=== PATIENT | male | born 1975 | race Caucasian/White ===

== ENCOUNTER 2024-06-15 13:11 | Outpatient (AMB) | payer BC, SELFPAY ==
--- NOTE | 2024-06-15 13:26 | HO.SPINEOV ---
Vital Signs 06/15/24 13:27 Height 5 ft 6 in Weight 170 lb BMI 27.4 Intake Visit Reasons: lumbar radiculopathy Intake Note: Mr. Butler is here today c/o low back pain that radiates down to the right leg. Business Functional Analyst Required: No Allergies No Known Allergies Allergy (Verified 06/15/24 13:27) Physical Exam Vital Signs: BMI result Body Mass Index 27.4 Assessment & Plan Assessment & Plan (1) Lumbar disc herniation: Code(s): M51.26 - Other intervertebral disc displacement, lumbar region Category: Medical Plan Dear Dr Juares, Thank you for referring Mr Butler to our office today. He is a very nice 49-year-old gentleman with a previous history of a right L4-[address] Rahman 15 years ago with excellent results. Sometime back in January 2024 he was moving some heavy objects and leaning backwards and when he did he felt a pop in his back and felt pain shoot down his leg very similar to when he had a previous disc herniation. He tried to wait it out for awhile. He did see a surgeon at [facility]. He underwent physical therapy for 8 weeks without any relief. He was trialed on Motrin, Tylenol, Lyrica, cyclobenzaprine etc. without any major improvements. Unfortunately the pain persisted, an MRI was done and that showed that he has recurrent herniated disc on the right at L4-5 with compression of the right L5 nerve root. Unfortunately the surgeon at [facility] was not necessarily committed to the idea of surgery but the patient's pain has been so bad that he is seeking out a 2nd opinion. He has a lot of trouble sleeping, walking, standing for any length of time. More recently he underwent an L4-[address] Stearns and that did help slightly. He has now been out of work for about 4 months dealing with this issue and he is very frustrated with his quality of life. PMH: History of colon cancer many years ago with colon resection. Colon resection was done with a laparotomy. History of back surgery in 2009 as outlined above. Otherwise history of hypertension that is well controlled on lisinopril. Social hx: He does not smoke, drink or use any recreational drugs Medications: Cyclobenzaprine, lisinopril, lorazepam, Lyrica Allergies: None Physical exam: He has weakness of his right tibialis which I would rate as 4-5. Reflexes the patella and Achilles are normal. He has a well-healed midline incision in his lower lumbar spine. Imaging review: Lumbar MRI done at [facility] in February 2024 shows postsurgical changes with recurrent small disc herniation on the right at L4-5. Best seen on the sagittal T2 view you can see the disc herniation with the traversing L5 nerve root displaced posteriorly. Impression: 49-year-old male with a previous history of a right L4-5 microdiskectomy, done by Dr. Rahman 15 years ago, presents now with recurrent disc herniation on the right at L4-5. He has been through trials of conservative treatment as outlined above including physical therapy, cortisone injection as well as multiple medication trials but the pain just will not seem to go away. He was seen at [facility] and the surgeon there was not strongly in favor of surgery as the disc herniation was not that big. I reviewed his imaging with Dr. Blevins. We do see evidence on the imaging that there is posterior displacement of the nerve secondary to disc herniation, best seen on the sagittal T2 image. From our standpoint, the size of the disc herniation is not always the main factor and how much pain the patient may have. In fact, with the previous scar tissue in that area, there is probably less mobility of the nerve and therefore smaller disc herniation may give him more problems. Since he has been through all the conservative treatment, the pain has not improved and he has weakness of his right tibialis, Dr. Blevins is offering him a right L4-5 redo microdiskectomy. We have tentatively scheduled this for 07/27/2024. He understands that the success rate for the surgery is not going to be as high as it was the 1st time around where we would normally quote as high as 90% but we do think there significant room for improvement. Pt was given risk and benefits of surgery including but not limited to infection, hematoma , nerve injury,durotomy, weakness,bowel/bladder injury, persistent pain, recurrent disc herniation as well as the option to continue with conservative treatment and patient wishes to proceed with surgery. Pt is aware they should stop their motrin, aspirin 7 days prior to surgery. All questions were answered to the best of our ability. If there is anything about this patients medical history that we have overlooked or concerns you have about us proceeding with surgery we would appreciate any input you can offer. Thank you for allowing us to care for your patient. The total time spent with this visit with this patient was 45 minutes reviewing history, physical exam, lumbar imaging review, and implementation of treatment plan or further diagnostic testing Jefry Blevins MD,PhD [facility] Coding Level of Care Code New Pt Level 4 (22362) Diagnoses Lumbar disc herniation M51.26
[2024-06-15 13:27] VITALS: BMI 27.4
--- OUTSIDE RECORDS SUMMARY | 2024-06-15 15:32 | XMS_ITS | Clinical Summary ---
Author Organization [facility] it Address [address] [place] [address] Care Team Providers Care Estimator Binding Name Role Phone Unavailable Primary Care Provider Unavailabl e Social History Tobacco Use Types Packs/Day Years Used Date Smoking Tobacco: Never Assessed Sex and Gender Information Value Date Recorded Sex Assigned at Not on file Gender Identity Not on file Sexual Orientation Not on file Plan of Treatment Health Maintenance Due Date Last Done Comments Hepatitis A Vaccines (1 of 2 - Risk 2-dose series) 1993 Hepatitis B Vaccines (1 of 3 - 19+ 3-dose series) 1993 Depression Screening 04/25/2022 HIV Screening 04/25/2022 Hepatitis C Screening 04/25/2022 Social Influencers of Health Screening 04/25/2022 DTaP,Tdap,and Td Vaccines (3 - Td or Tdap) 08/15/2023 08/14/2013, 08/14/2013 COVID-19 Vaccine ( season) 2024 Influenza Vaccine (#1) 2024 3, 05/04/2019, 04/21/2018, Additional history exists Zoster Vaccines (1 of 2) 2024 Hypertension/CHF/CAD Annual BMP Blood Test 05/10/2024 03/25/2023 Cholesterol Screening (Lipid Panel) 01/09/2026 01/09/2021 Colorectal Cancer Screening: Colonoscopy 01/31/2030 02/01/2020 HIB Vaccines Aged Out No longer eligi ble based on patient's age to complete this topic HPV Vaccines Aged Out No longer eligi ble based on patient's age to complete this topic IPV Vaccines Aged Out No longer eligi ble based on patient's age to complete this topic MMR Vaccines Aged Out No longer eligi ble based on patient's age to complete this topic Meningococcal ACWY Vaccine Aged Out N o longer eligible based on patient's age to complete this topic Pneumococcal Vaccine: Pediatrics (0 to 5 Years) and At-Risk Patients (6 to 64 Years) Aged Out No longer eligible based on patient's age to complete this topic RSV Immunization Patients Under 20 months Aged Out No longer eligible based on patient's age to complete this topic Varicella Vaccines Aged Out No longer eligible based on patient's age to complete this topic
--- OUTSIDE RECORDS SUMMARY | 2024-06-15 15:32 | XMS_ITS | Encounter Summary ---
Author Organization [facility] Address [address] [facility] 7 [place] [address] Care Team Providers Care Water Plumber Name Role Phone Rosio Juares MD Primary Care Provider [phone] Reason for Referral * Consultation (Routine) - Closed Specialty Diagnoses / Procedures Referred By Godwin arora Referred To Contact Diagnoses Lumbar radiculopathy, chronic Asha Vallejo CNP [address] [place] [address] Phone: tel: fax: Ric [address] [place] [address] Phone: tel: fax: Referral ID Status Reason Start Date Expiration Date V isits Requested Visits Authorized [id number] Closed Specialty Services Required 03/15/2024 03/15/2025 1 1 Reason for Visit * Reason Onset Date Comments MRI results 03/10/2024 Care Coordination 03/10/2024 Encounter Details Date Type Department Care Team (Late st Contact Info) Description 03/10/2024 Telephone [facility] [address] [place] [address] Rosio Juares MD [address] [place] [address] MRI results; Care Coordination Social History Tobacco Use Types Packs/Day Years Used Date Smoking Tobacco: Former Cigarettes Smokeless Tobacco: Never Alcohol Use Standard Drinks/Week Comments Yes 0 (1 standard drink = 0.6 oz pur e alcohol) Rarley Sex and Gender Information Value Date Recorded Sex Assigned at Male 04/28/2022 1:14 PM EST Legal Sex Male 8:36 PM EDT Gender Identity Male 04/28/2022 1:14 PM EST Sexual Orientation Straight 04/28/2022 1: 14 PM EST documented as of this encounter Miscellaneous Notes * Telephone Encounter - Asha Vallejo CNP - 03/15/2024 10:31 AM EDT Referral entered; back to referrals for processing * Telephone Encounter - Roselyn Landis - 03/15/2024 9:12 AM EDT Sending to you as you are covering for Rosio, I don't want this this get lost an the patient have to keep waiting for his referral and this TE was not sent to Referrals. Patient called Referrals asking about a referral to Dr. Lynch. We don't have a referral for neurosurgery. Patient called Dr. Lynch's office and he does not see patients for Worker's Comp. They suggested either Dr. Chapa at [facility] or Dr Buddy Larios at [facility]. Patient prefers Dr. Larios. Please enter referral to neurosurgery is appropriate for his dx. * Telephone Encounter - Lalita Oliveros LPN - 03/14/2024 11:11 AM EDT Call placed to patient. Patient is agreeable to orthopedic but wants to do research where to go first. Patient will CB and speak with referrals of his choice. Patient is also requesting referral to Dr. Lynch, patient believes he may need to be seen by him as he does not think ortho can do much for hiscondition. Encounter to referrals as update and to covering to advise of requested new referral. * Telephone Encounter - Dorothy Linda - 03/14/2024 8:49 AM EDT Patient called, returning a call to nursing. Please call * Telephone Encounter - Lalita Oliveros LPN - 03/13/2024 2:32 PM EDT Call placed to patient. LMOM to CB. * Telephone Encounter - Dorothy Linda - 03/13/2024 2:24 PM EDT Patient called, returning call to nursing. Please call * Telephone Encounter - Ale Lucero LPN - 03/13/2024 2:10 PM EDT Left message for pt to call back. * Telephone Encounter - Asha Vallejo CNP - 03/13/2024 1:17 PM EDT Degenerative changes of lumbar spine, most significant finding small right central focal protrusionat L4-L5 which causes impingement of right L5 nerve root in the lateral recess; most likely cause of sx; advise follow up with ortho and if agreeable can enter order but would need to know where pt would like to go, thanks * Telephone Encounter - Lalita Oliveros LPN - 03/13/2024 12:21 PM EDT Results received, encounter to covering to review/advise. * Telephone Encounter - Lalita Oliveros LPN - 03/13/2024 9:09 AM EDT Pending results. * Telephone Encounter - Lalita Oliveros LPN - 2024 8:35 AM EDT Pending results. * Telephone Encounter - Bere Doan - 03/10/2024 4:03 PM EDT Patient returned call to nursing. MRI was done at [facility] on 03/01 Patient was made aware we will be sending the request for the mri records and once received nursingwill reach back out Please obtain medical records * Telephone Encounter - Judith Antonio LPN - 03/10/2024 3:43 PM EDT Call placed to patient. LMOM to return call. No MRI results in chart, When and where was it done. * Telephone Encounter - Sol Pitts - 03/10/2024 3:27 PM EDT Patient asking to speak to someone about MRI results documented in this encounter Plan of Treatment Not on file documented as of this encounter Procedures Procedure Name Priority Date/Time Associated Diagnosis Comments AMB REFERRAL TO NEUROSURGERY Routine 04/03/2024 Lumbar radiculopathy, chronic documented in this encounter Results * Referral to Neurosurgery (04/03/2024) Asha Vallejo CNP OUTPATIENT REFERRAL ORDERABLE S Final Result documented in this encounter Visit Diagnoses Diagnosis Lumbar radiculopathy, chronic- Primary documented in this encounter Care Teams Water Plumber Relationship Specialty Start Date End Date Rosio Juares MD [address] [place] [id number] PCP - General Internal Medicine 04/23/22 documented as of this encounter
--- OUTSIDE RECORDS SUMMARY | 2024-06-15 15:32 | XMS_ITS | Encounter Summary ---
Author Organization [facility] [employer] Address [address] [place] [address] [place] [address] Care Team Providers Care Geological Technician Name Role Phone Rosio Juares MD Primary Care Provider [phone] Reason for Visit * Reason Onset Date Comments [employer] paperwork 05/23/2024 Fax received fro [facility] Encounter Details Date Type Department Care Team (Late st Contact Info) Description 05/23/[address] [facility] [address] [place] [address] Rosio Juares MD [address] [place] [address] [facility] paperwork (Fax received from [facility] PFMLA) Social History Tobacco Use Types Packs/Day Years Used Date Smoking Tobacco: Former Cigarettes Smokeless Tobacco: Never Alcohol Use Standard Drinks/Week Comments Yes 0 (1 standard drink = 0.6 oz pur e alcohol) Nusrat Sex and Gender Information Value Date Recorded Sex Assigned at Male 04/28/2022 1:14 PM EST Legal Sex Male 8:36 PM EDT Gender Identity Male 04/28/2022 1:14 PM EST Sexual Orientation Straight 04/28/2022 1: 14 PM EST documented as of this encounter Miscellaneous Notes * Telephone Encounter - VERNA Canales - 05/23/2024 2:35 PM EST Paperwork to be completed by Dr Juares. documented in this encounter Plan of Treatment Not on file documented as of this encounter Visit Diagnoses Not on filedocumented in this encounter Care Teams Geological Technician Relationship Specialty Start Date End Date Rosio Juares MD [address] [place] [address] PCP - General Internal Medicine 04/23/22 documented as of this encounter
--- OUTSIDE RECORDS SUMMARY | 2024-06-15 15:32 | XMS_ITS | Encounter Summary ---
Author Organization [employer] Address [address] [place] [address] [address], [place] [address] Care Team Providers Care College Hire Name Role Phone Rosio Juares MD Primary Care Provider [phone] Reason for Referral * Consultation (Routine) - Pending Review Specialty Diagnoses / Procedures Referred By Godwin arora Referred To Contact Neurosurgery Diagnoses Lumbar radiculopathy, acute Rosio Juares MD [address] [place] [address] Phone: tel: fax: Sumit Blevins[address] [place] [address] Phone: tel: fax: Referral ID Status Reason Start Date Expiration Date Visits Requested Visits Authorized [id number] Pending Review Specialty Services Required 06/01/2024 06/01/2025 1 1 Reason for Visit * Reason Onset Date Comments Additional [facility] PT paperwork 06/01/2024 Encounter Details Date Type Department Care Team (Late st Contact Info) Description 06/01/2024 Telephone [place] [facility] [address] [place] [address] Rosio Juares MD [address] [place] [address] Additional [facility] PT paperwork Social History Tobacco Use Types Packs/Day Years [...] * Telephone Encounter - VERNA Canales - 06/05/2024 3:01 PM EST SUCCESSFULLY FAXED COMPLETED PAPERWORK ENCOUNTER ADDRESSED * Telephone Encounter - VERNA Canales - 06/01/2024 9:05 AM EST Additional paperwork from [facility] PT Encounter to Dr Juares for review and signature documented in this encounter Plan of Treatment Not on file documented as of this encounter Procedures Procedure Name Priority Date/Time Associated Diagnosis Comments AMB REFERRAL TO NEUROSURGERY Routine 06/15/2024 Lumbar radiculopathy, acute documented in this encounter Results * Referral to Neurosurgery (06/15/2024) us Rosio Juares MD OUTPATIENT REFERRAL ORDERABLES F inal Result documented in this encounter Visit Diagnoses Diagnosis Lumbar radiculopathy, acute- Primary documented in this encounter Care Teams College Hire Relationship Specialty Start Date End Date Rosio Juares MD [address] [place] [address] PCP - General Internal Medicine 04/23/22 documented as of this encounter
--- OUTSIDE RECORDS SUMMARY | 2024-06-15 15:32 | XMS_ITS | Encounter Summary ---
Author Organization [employer] [facility] Address [address] [place] [address] [place] [address] Care Team Providers Care Trimmer Climber Name Role Phone Rosio Juares MD Primary Care Provider Reason for Visit * Reason Onset Date Comments AT Physical Therapy paperwork 05/23/2024 F ax received from [facility] Physical Therapy paperwork Encounter Details Date Type Department Care Team (Late st Contact Info) Description 05/23/[address] [facility] MEDICAL [address] [place] [address] Rosio Juares MD [address] [place] [address] [facility] Physical Therapy paperwork (Fax received from [facility] Physical Therapy paperwork) Social History Tobacco Use Types Packs/Day Years [...] Telephone Encounter - VERNA Canales - 05/23/2024 2:36 PM EST [facility] Physical Therapy paperwork to be reviewed and completed by Dr Juares for faxing. documented in this encounter Plan of Treatment Not on file documented as of this encounter Visit Diagnoses Not on filedocumented in this encounter Care Teams Trimmer Climber Relationship Specialty Start Date End Date Rosio Juares MD [address] [place] [id number] PCP - General Internal Medicine 04/23/22 documented as of this encounter
--- OUTSIDE RECORDS SUMMARY | 2024-06-15 15:32 | XMS_ITS | Clinical Summary ---
Author Organization [employer] [employer] Address [address] [place] [address] 7 [place] [address] Care Team Providers Care Kitchen And Counter Worker Name Role Phone Rosio Juares MD Primary Care Provider [phone] Allergies Active Allergy Reactions Criticality Noted Date Comments Duloxetine Hcl 06/24/2022 Other reaction(s): Unknown Medications * This document contains information received from the source organization and may not represent a complete record from that organization. lisinopril 20 MG tabletIndication s:Essential hypertension Take 1 tablet (20 mg) by mouth in the morning. 90 tablet 3 11/18/19 24 025 Active pregabalin (Lyrica) 50 MG capsuleIndicatio ns:Lumbar radiculopathy, acute Take 1 capsule (50 mg) by mouth 3 times daily. 90 capsule 2 03/27/20 24 025 Active LORazepam (Ativan) 0.5 MG tabletIndication s:Generalized anxiety disorder with panic attacks TAKE 1 TABLET (0.5 MG) BY MOUTH EVERY 8 (EIGHT) HOURS IF NEEDED FOR ANXIETY. 90 tablet 1 04/06/20 24 Active cyclobenzaprine (Flexeril) 10 MG tabletIndication s:Lumbar radiculopathy, acute TAKE 1 TABLET (10 MG) BY MOUTH NEEDED IN THE MORNING , AT NOON, AND AT BEDTIME FOR MUSCLE SPASMS 45 tablet 06/01/19 25 Active cyclobenzaprine (Flexeril) 10 MG tabletIndication s:Lumbar radiculopathy, acute Take 1 tablet (10 mg) by mouth if needed in the morning, at noon, and at bedtime for muscle spasms. 45 tablet 04/27/20 24 025 Discontinued Active Problems Problem Noted Date Diagnosed Date Environmental and seasonal allergies 06/24/2022 Allergic rhinitis 06/24/2022 Anxiety 06/24/2022 Bunion, right foot 06/24/2022 Chronic pain disorder 06/24/2022 Overview (04/05/2023): S/p [facility] sports/injections Weaned down from 120 mg oxycodone daily and TID lorazepam, plan to continue weaning benzo Essential hypertension 06/24/2022 Hand pain 06/24/2022 Insomnia 06/24/2022 Low back pain 06/24/2022 Neck pain 06/24/2022 Nephrolithiasis 06/24/2022 Sleep apnea in adult 06/24/2022 Encounters Date Type Department Care Team Description 06/01/[address] [address] Rosio Juares MD Additional AT PT paperwork 05/31/[address] [address] Rosio Juares MD Lumbar radiculopathy, acute 05/23/[address] [address] Rosio Juares MD AT Physical Therapy paperwork (Fax received from [facility] Physical Therapy paperwork) 05/23/[address] [address] Rosio Juares MD [facility] paperwork (Fax received from [facility] PFMLA) 05/03/[address] [address] Rosio Juares MD DISABILITY PPW FROM [facility] (FAX RECEIVED FROM PATIENTS WORK RE: DISABILITY PPW) 05/01/2024 11:20 AM EST Telemedicine [address] [address] Rosio Juares MD Work related injury (Primary Dx); Lumbar radiculopathy, acute 04/26/[address] [address] Rosio Juares MD Lumbar radiculopathy, acute 04/04/[address] [address] Rosio Juares MD Generalized anxiety disorder with panic attacks 03/27/2024 9:40 AM EST Telemedicine [address] [address] Rosio Juares MD Lumbar radiculopathy, acute (Primary Dx); Hepatic cyst 03/16/[address] [address] Rosio Juares MD Lumbar radiculopathy, acute 03/16/[address] [address] Rosio Juares MD Paperwork/Forms from Last 3 Months Immunizations Name Administration Dates Next Due INFLUENZA INJECTABLE QUADRIV ALANT CCIIV4 MDCK Multi-dose vial 05/04/2019 Influenza Injectable Quadriv alant Preservative Free IIV4 MDCK 07/02/2022 Influenza, IIV3, injectable 04/21/2018,1 ,03/12/2015,2013 Influenza, Split (incl. john fied surface antigen) 04/29/2010 Influenza, seasonal, injecta ble, preservative free 02/18/2016 TD (adult), 2 Lf tetanus tox oid, preservative free, adsorbed 08/14/2013 Tdap 08/14/2013 Social History Tobacco Use Types Packs/Day Years Used Date Smoking Tobacco: Former Cigarettes Smokeless Tobacco: Never Tobacco Cessation:Counseling Given: Not Answered Alcohol Use Standard Drinks/Week Comments Yes 0 (1 standard drink = 0.6 oz pur e alcohol) Nusrat Sex and Gender Information Value Date Recorded Sex Assigned at Male 04/28/2022 1:14 PM EST Legal Sex Male 8:36 PM EDT Gender Identity Male 04/28/2022 1:14 PM EST Sexual Orientation Straight 04/28/2022 1: 14 PM EST Last Filed Vital Signs Vital Sign Reading Time Taken Comments Blood Pressure 128/92 03/03/2024 3:39 PM EDT Pulse 90 03/03/2024 3:39 PM EDT Temperature 36.2 ??C (97.2 ??F) 03/03/2024 3:39 PM ED T Respiratory Rate 18 03/03/2024 3:39 PM EDT Oxygen Saturation 99% 11/20/2021 2:15 PM EDT Inhaled Oxygen Concentration - - Weight 75.8 kg (167 lb) 03/03/2024 3:39 PM EDT Height 167.6 cm (5' 6 ) 11/18/2023 3:35 PM EDT Body Mass Index 26.95 11/18/2023 3:35 PM EDT Plan of Treatment Health Maintenance Due Date Last Done Comments Depression Screening 1974 HIV Screening 1974 SDOH Screening 1974 Alcohol/Substance Use Screening 1986 Family Planning (PISQ) 1989 Hepatitis C Screening 1992 Hepatitis A Vaccines (1 of 2 - Risk 2-dose series) 1993 Hepatitis B Vaccines (1 of 3 - 19+ 3-dose series) 1993 DTaP/Tdap/Td Vaccines (3 - Td or Tdap) 08/15/2023 08/14/2013, 08/14/2013 COVID-19 Vaccine ( season) 2024 06/24/2021, 08/02/2020, 07/14/2020 Influenza Vaccine (#1) 2024 , 05/04/2019, 04/21/2018, Additional history exists Zoster Vaccines (1 of 2) 2024 Tobacco Screening 03/03/2025 03/03/2024 Lipid Panel 01/09/2026 01/09/2021 RSV Patients and Patients Aged 60 years or older (1 - 1-dose 75+ series) 2049 Colonoscopy Discontinued 02/01/2020, 11/18/2015 Colorectal Cancer Screening Discontinued CT Colonography Discontinued FIT DNA/Cologuard Discontinued FIT Discontinued FOBT Discontinued HIB Vaccines Aged Out No longer eligi ble based on patient's age to complete this topic HPV Vaccines Aged Out No longer eligi ble based on patient's age to complete this topic IPV Vaccines Aged Out No longer eligi ble based on patient's age to complete this topic Meningococcal Vaccine Aged Out No rossana toney eligible based on patient's age to complete this topic Pneumococcal Vaccine: Pediatrics (0 to 5 Years) and At-Risk Patients (6 to 64 Years) Aged Out No longer eligible based on patient's age to complete this topic RSV under 20 months Aged Out No longe r eligible based on patient's age to complete this topic Rotavirus Vaccines Aged Out No longer eligible based on patient's age to complete this topic Sigmoidoscopy Discontinued Procedures Procedure Name Priority Date/Time Associated Diagnosis Comments AMB REFERRAL TO NEUROSURGERY Routine 06/15/2024 Lumbar radiculopathy, acute AMB REFERRAL TO PHYSICAL THERAPY Routine 05/15/2024 Lumbar radiculopathy, chronic AMB REFERRAL TO NEUROSURGERY Routine 04/03/2024 Lumbar radiculopathy, chronic LIPID PANEL, STANDARD Routine 01/09/2021 3:35 PM EDT COLONOSCOPY Routine 02/01/2020 12:00 AM EDT from Last 3 Months or Most Recently Relevant to Health Maintenance Results * Referral to Neurosurgery (06/15/2024) Only the most recent of2 resultswithin the time period is included. us Rosio Juares MD OUTPATIENT REFERRAL ORDERABLES F inal Result * Referral to Physical Therapy (05/15/2024) us Rosio Juares MD OUTPATIENT REFERRAL ORDERABLES E dited Result - Final * (ABNORMAL) -Lipid Panel (01/09/2021 3:35 PM EDT) LDL CHOLESTEROL, CALCULATED 90 (0-130) MG/DL [facility] CHOLESTEROL, TOTAL 140 (<200) MG/DL [facility] HDL CHOL 39(L) (>39) MG/DL [facility] NON HDL CHOLESTEROL (CALC) 101 (<160) MG/DL [facility] TRIGLYCERIDE 55 (<150) MG/DL [facility] 01/09/2021 3:35 PM EDT us Rosio Juares MD LAB BLOOD ORDERABLES Final Resul t [facility] [address] * COLONOSCOPY: [facility] (02/01/2020 12:00 AM EDT) Anatomical Region Laterality Modality Endoscopy 02/01/2020 Narrative 02/01/2020 12:00 AM EDT Refer to Fovea for result details Legacy Procedure: COLONOSCOPY: [facility] Procedure Note Provider, Miguelina, - 09/17/2022 Refer to Fovea for result details Legacy Procedure: COLONOSCOPY: [facility] us Historical Provider ENDOSCOPY PROCEDURE ORDER ALBIN Final Result from Last 3 Months or Most Recently Relevant to Health Maintenance Insurance [employer] PPO [employer] Care Teams Kitchen And Counter Worker Relationship Specialty Start Date End Date Rosio Juares MD [address] [place] [id number] PCP - General Internal Medicine 04/23/22
--- OUTSIDE RECORDS SUMMARY | 2024-06-15 15:32 | XMS_ITS | Encounter Summary ---
Author Organization [employer] Address [address] [place] [address] [place] [address] Care Team Providers Care Deputy Director Of Public Works Name Role Phone Rosio Juares MD Primary Care Provider [phone] Reason for Visit * Reason Comments Med Refill Encounter Details Date Type Department Care Team (Late st Contact Info) Description 05/31/2024 Refill [facility] MEDICAL [address] [place] [address] Rosio Juares MD [address] [place] [address] Lumbar radiculopathy, acute Social History Tobacco Use Types Packs/Day Years [...] PM EST documented as of this encounter Plan of Treatment Not on file documented as of this encounter Visit Diagnoses Diagnosis Lumbar radiculopathy, acute documented in this encounter Care Teams Deputy Director Of Public Works Relationship Specialty Start Date End Date Rosio Juares MD [address] [place] [address] PCP - General Internal Medicine 04/23/22 documented as of this encounter
== END 2024-06-15 14:16 | disposition home or self-care (01) ==
PROVIDERS: PCP Internal Medicine; Referring Provider Internal Medicine; Visit Provider Physician Assistant
DX: M51.26 Other intervertebral disc displacement, lumbar region (principal)
CPT/HCPCS: 99204

== ENCOUNTER → 2024-06-15 13:11 | Outpatient (BNVA) | payer BC, SELFPAY | PROVIDERS: PCP Internal Medicine; Referring Provider Internal Medicine; Visit Provider Physician Assistant ==

== ENCOUNTER 2024-07-06 06:52 | Day surgery (SDC) | payer BC, SELFPAY ==
[2024-06-28 12:03] VITALS: BP 138/81; PULSE 77; RESP 18; O2SAT 99; BMI 29.1
[2024-06-28 13:06] LABS: Hematocrit 44.3 % (42.0-52.0); Hemoglobin 14.6 g/dl (14.0-18.0); Mean Corpuscular Hemoglobin 29.6 pg (27.0-33.0); Mean Corpuscular Volume 89.7 fL (80.0-98.0); Mean Platelet Volume 9.4 fL (9.4-12.4); Platelet Count 214 X10*3/uL (160-400); Red Blood Count 4.94 X10*6/uL (4.60-5.80); Red Cell Distribution Width 12.5 % (11.0-16.0); White Blood Count 5.3 X10*3/uL (4.8-10.8)
[2024-06-28 13:57] LABS: Anion Gap 11 (12-20); Blood Urea Nitrogen 15 mg/dL (9-16); Calcium 9.2 mg/dL (8.4-10.2); Carbon Dioxide 25 mmol/L (22-29); Chloride 107 mmol/L (96-108); Creatinine Clr Calc Pharmacy 90.3; Estimated Glomerular Filt Rate > 60; Glucose Random 103 mg/dL (60-115); Potassium 4.9 mmol/L (3.3-5.1); Sodium 138 mmol/L (135-145)
[2024-07-06] VITALS (10 sets, daily range): BP systolic 119–143; BP diastolic 75–87; PULSE 55–68; RESP 14–22; TEMP 36.4–36.9; O2SAT 99–100; BMI 28.9
--- NOTE | ~2024-07-06 | FL_ITS ---
EXAMINATION: FL GUIDANCE ONLY HISTORY: Redo L4-L5 microdiscectomy Right COMPARISON: None available. TECHNIQUE: Fluoroscopy time: Less than 1 minute. Cumulative Dose: 2.06 mGy. DAP: 0.540 mGym2 Images: 1. FINDINGS: A single fluoroscopic spot film of the lumbar spine in the lateral projection demonstrates a probe directed toward the L4-5 intervertebral disc space from a posterior approach. FL/FL guidance in OR IMPRESSION: Fluoroscopy during procedure. Please see procedure report for additional information. Electronically signed by: Wil Yen MD 07/06/2024 09:41 AM EST
--- OUTSIDE RECORDS SUMMARY | 2024-07-06 06:54 | XMS_ITS | Clinical Summary ---
Author Organization [employer] Address [address] [place] [address] 7 [place] [address] Care Team Providers Care Bronc Buster Name Role Phone Rosio Juares MD Primary Care Provider [phone] Allergies Active Allergy Reactions Criticality Noted Date [...] 90 capsule 2 03/27/20 24 025 Active cyclobenzaprine (Flexeril) 10 MG tabletIndication s:Lumbar radiculopathy, acute TAKE 1 TABLET (10 MG) BY MOUTH NEEDED IN THE MORNING , AT NOON, AND AT BEDTIME FOR MUSCLE SPASMS 45 tablet 06/26/19 25 Active LORazepam (Ativan) 0.5 MG tabletIndication s:Generalized anxiety disorder with panic attacks Take 1 tablet (0.5 mg) by mouth every 8 (eight) hours if needed for anxiety. 90 tablet 1 06/26/19 25 Active LORazepam (Ativan) 0.5 MG tabletIndication s:Generalized anxiety disorder with panic attacks TAKE 1 TABLET (0.5 MG) BY MOUTH EVERY 8 (EIGHT) HOURS IF NEEDED FOR ANXIETY. 90 tablet 1 04/06/20 24 025 Discontinued(Re order (will not trigger notification to Pharmacy)) cyclobenzaprine (Flexeril) 10 MG tabletIndication s:Lumbar radiculopathy, acute TAKE 1 TABLET (10 MG) BY MOUTH NEEDED IN THE MORNING , AT NOON, AND AT BEDTIME FOR MUSCLE SPASMS 45 tablet 06/01/19 25 025 Discontinued Active Problems Problem Noted Date [...] Encounters Date Type Department Care Team Description 06/28/[address] [address] Rosio Juares MD PML paperwork 06/25/[address] [address] Rosio Juares MD Generalized anxiety disorder with panic attacks 06/24/[address] [address] Rosio Juares MD Lumbar radiculopathy, acute 06/01/[address] [address] Rosio Juares MD Additional [facility] PT paperwork 05/31/[address] [address] Rosio Juares MD Lumbar radiculopathy, acute 05/23/[address] [address] Rosio Juares MD AT Physical Therapy paperwork (Fax received from [facility] Physical [facility] paperwork) 05/23/[address] [address] Rosio Juares MD [employer] paperwork (Fax received from [employer] PFMLA) 05/03/[address] [address] Rosio Juares MD DISABILITY PPW FROM [employer] (FAX RECEIVED FROM PATIENTS WORK RE: DISABILITY PPW) 05/01/2024 11:20 AM EST Telemedicine [address] [address] Rosio Juares MD Work related injury (Primary Dx); Lumbar radiculopathy, acute 04/26/[address] [address] Rosio Juares MD Lumbar radiculopathy, acute from Last 3 Months Immunizations Name Administration [...] Tdap) 08/15/2023 08/14/2013, 08/14/2013 COVID-19 Vaccine ( - 2023- season) 2024 06/24/2021, 08/02/2020, 07/14/2020 Influenza Vaccine (#1) 2024 , 05/04/2019, 04/21/2018, Additional history exists Pneumococcal Vaccine: 50+ Years (1 of 1 - PCV) 2024 Zoster Vaccines (1 of 2) 2024 Tobacco [...] acute AMB REFERRAL TO PHYSICAL THERAPY Routine 06/15/2024 Lumbar radiculopathy, chronic LIPID PANEL, STANDARD Routine 01/09/2021 3:35 PM EDT COLONOSCOPY Routine 02/01/2020 12:00 AM EDT from Last 3 Months or Most Recently Relevant to Health Maintenance Results * Referral to Physical Therapy (06/15/2024) us Rosio Juares MD OUTPATIENT REFERRAL ORDERABLES E dited Result - Final * Referral to Neurosurgery (06/15/2024) us Rosio Juares MD OUTPATIENT REFERRAL ORDERABLES F inal Result * (ABNORMAL) -Lipid Panel (01/09/2021 3:35 PM [...] MD LAB BLOOD ORDERABLES Final Resul t [facility] [address] [place] [address], * COLONOSCOPY: [facility] (02/01/2020 12:00 AM EDT) Anatomical Region Laterality Modality Endoscopy 02/01/2020 Narrative 02/01/2020 12:00 AM EDT Refer to Fovea for result details Legacy Procedure: [facility]OS[facility]: [facility] Procedure Note Provider, MD Miguelina - 09/17/2022 Refer to Fovea for result details Legacy Procedure: [facility]ONOSCOPY: [facility] Historical Provider ENDOSCOPY PROCEDURE ORDER ALBIN Final Result from Last 3 Months or Most Recently Relevant to Health Maintenance Insurance [place] [address] PPO [facility] [employer] Care Teams Bronc Buster Relationship Specialty Start Date End Date Rosio Juares MD [address] [place] [address] PCP - General Internal Medicine 04/23/22
--- OUTSIDE RECORDS SUMMARY | 2024-07-06 06:54 | XMS_ITS | Encounter Summary ---
Author Organization [employer] Address [address] [place] [address] 7 [place] [address] Care Team Providers Care Human Services Supervisor Name Role Phone Rosio Juares MD Primary Care Provider [phone] Reason for Visit * Reason Onset Date Comments PML paperwork 06/28/2024 Encounter Details Date Type Department Care Team (Late st Contact Info) Description 06/28/2024 Telephone [facility] MEDICAL [address] [place] [address] Rosio Juares MD [address] [place] [address] PML paperwork Social History Tobacco Use Types Packs/Day [...] * Telephone Encounter - VERNA Canales - 06/30/2024 10:54 AM EST Faxed - encounter addressed * Telephone Encounter - Randi Faustin - 06/28/2024 2:39 PM EST Paid medical leave received via fax from [facility] to be filled out. Placed in the providers bin documented in this encounter Plan of Treatment Not on file documented as of this encounter Visit Diagnoses Not on filedocumented in this encounter Care Teams Human Services Supervisor Relationship Specialty Start Date End Date Rosio Juares MD [address] [place] [id number] PCP - General Internal Medicine 04/23/22 documented as of this encounter
--- OUTSIDE RECORDS SUMMARY | 2024-07-06 06:55 | XMS_ITS | Encounter Summary ---
Author Organization [employer] Address [address] [place] [address] [place] [address] Care Team Providers Care Ship'S Officer Name Role Phone Rosio Juares MD Primary Care Provider [phone] Reason for Visit * Reason Comments Med Refill Encounter Details Date Type Department Care Team (Late st Contact Info) Description 06/24/2024 Refill [facility] MEDICAL [address] [place] [address] Rosio Juares MD [address] [place] [address] Lumbar radiculopathy, acute Social History Tobacco Use [...] acute documented in this encounter Care Teams Ship'S Officer Relationship Specialty Start Date End Date Rosio Juares MD [address] [place] [address] PCP - General Internal Medicine 04/23/22 documented as of this encounter
--- OUTSIDE RECORDS SUMMARY | 2024-07-06 06:55 | XMS_ITS | Continuity of Care Document ---
Author Organization [facility] Address [address] [place] [address] [address], [address] [place] [address]- Care Team Providers Care Plunket Nurse Name Role Phone Rosio Juares MD Primary Care Physician Encounter [facility] Date(s): 05/23/24 - 06/22/[address] [place], [place] [address] Referring Physician: Ponce Stearns DO Encounter Type: Triage Allergies, Adverse Reactions, Alerts No Known Allergies Medications Aleve = 220 mg, By Mouth, 2 times a day, 0 Refills, Maintenance, 12/02/09 3:30:59 PM EDT Start Date: 12/02/09 Status: Ordered Repeat number: 1 Ambien 10 mg oral tablet 10 mg, 1, tablet, By Mouth, Daily at bedtime, 0 Refills Start Date: 07/29/07 Status: Ordered Repeat number: 1 Ativan 0.5 mg oral tablet 1, mg, By Mouth, Daily, PRN as needed for anxiety, 0 Refills, Maintenance Start Date: 07/29/07 Status: Ordered Repeat number: 1 lisinopril 10 mg oral tablet 10 mg, 1, tablet, By Mouth, Daily, # 30 tablet, Refills 0, Maintenance, 06/04/22 10:41:00 AM EST, Partial fill upon patient request if the prescription is for a schedule II opioid drug. Start Date: 06/04/22 Status: Ordered Quantity: 30.0 Unit: tablet Repeat number: 1 Percocet-10/325 oral tablet 10, mg, By Mouth, Every 4 hours, 0 Refills, Maintenance Start Date: 07/29/07 Status: Ordered Repeat number: 1 Social History Social History Type Response Smoking Status Never (less than 100 in lifetime) entered on: 04/03/24 Sex Sex Representation Male (finding) Patient Care team information Care Team Personnel Name: Rosio Juares MD Position: [facility] Physician - Pediatrics Member Role: PCP Address: [address] [place] [address] Telecom: Care Team Related Persons Name: JULIO CÉSAR ROLON Insurance Providers Guarantor name: CASH ROLON Health Plan Information #: 1 Payer: [employer] OUT OF STATE PLANS Member Number: NA Policy Number: NA Group Number: NA Health Plan Information #: 2 Payer: [employer] Member Number: NA Policy Number: NA Group Number: NA
--- OUTSIDE RECORDS SUMMARY | 2024-07-06 06:55 | XMS_ITS | Encounter Summary ---
Author Organization [employer] Address [address] [place] [address] [place] [address] Care Team Providers Care Wood Mechanist Name Role Phone Rosio Juares MD Primary Care Provider [phone] Reason for Visit * Reason Onset Date Comments Med Refill 06/25/2024 CS RX REFILL ON LORAZEPAM Encounter Details Date Type Department Care Team (Late st Contact Info) Description 06/25/2024 Refill [facility] MEDICAL [address] [place] [address] Rosio Juares MD [address] [place] [address] Generalized anxiety disorder with panic attacks Social History Tobacco Use Types Packs/Day Years [...] * Telephone Encounter - VERNA Canales - 06/26/2024 3:16 PM EST [facility] Last fill Date: 05/15/24 [facility] sold Date: Last OV: 05/01/25 Next OV: NONE SCHEDULED Last UTOX: 08/19/23 CSA Date: 08/19/23 DNF Date: REFILL IS DUE documented in this encounter Plan of Treatment Not on file documented as of this encounter Visit Diagnoses Diagnosis Generalized anxiety disorder with panic attacks documented in this encounter Care Teams Wood Mechanist Relationship Specialty Start Date End Date Rosio Juares MD [address] [place] [phone] PCP - General Internal Medicine 04/23/22 documented as of this encounter
--- OUTSIDE RECORDS SUMMARY | 2024-07-06 06:55 | XMS_ITS | Encounter Summary ---
Author Organization [employer] Address [address] [facility] 7 [place] [address] Care Team Providers Care Sde Name Role Phone Rosio Juares MD Primary Care Provider [phone] Reason for Referral * Consultation (Routine) - Closed Specialty Diagnoses / Procedures Referred By Godwin arora Referred To Contact Diagnoses Lumbar radiculopathy, chronic Asha Vallejo CNP [address] [place] [address] Phone: tel: fax: Ric [address] [place] [address] Phone: tel: fax: Referral ID Status Reason Start Date Expiration Date V isits Requested Visits Authorized [id number] Closed Specialty Services Required 03/15/2024 03/15/2025 1 1 Reason for Visit * Reason Onset Date Comments MRI results 03/10/2024 Care Coordination 03/10/2024 Encounter Details Date Type Department Care Team (Late st Contact Info) Description 03/10/2024 Telephone [facility] MEDICAL [address] [place] [address] Rosio Juares MD [address] [place] [address] MRI results; Care Coordination Social History Tobacco [...] Comp. They suggested either Dr. Chapa at [place] or Dr Buddy Larios at [facility]. Patient prefers Dr. Larios. Please enter referral [...] call to nursing. MRI was done at [facility] on 03/01 Patient was made aware [...] Primary documented in this encounter Care Teams Sde Relationship Specialty Start Date End Date Rosio Juares MD [address] [place] [address] PCP - General Internal Medicine 04/23/22 documented as of this encounter
--- OUTSIDE RECORDS SUMMARY | 2024-07-06 06:55 | XMS_ITS | Clinical Summary ---
Author Organization [facility] Address [address] [place] [address] Care Team Providers Care Fermenting Cellar Dropper Name Role Phone Unavailable Primary Care Provider Unavailabl e Social History Tobacco Use Types Packs/Day Years Used Date Smoking Tobacco: Never Assessed Sex and Gender Information Value Date Recorded Sex Assigned at Not on file Legal Sex Male 10:15 PM EST Gender Identity Not on file Sexual Orientation [...] or Tdap) 08/15/2023 08/14/2013, 08/14/2013 COVID-19 Vaccine (1 - season) 2024 Influenza Vaccine (#1) 2024 3, [...]
--- NOTE | 2024-07-06 07:05 | P.HPSUR_ITS ---
Pre-Procedural Eval Section A - 24 Hr Update-Section A only Date of Service: 07/06/24 The patient is an INPATIENT: No Changes since office visit: No Cold of Flu in the past 2 weeks, No New Medical Problems, No Changes in Medication and No Patient answered all questions The patient has been examined within 24 hours of the surgical procedure. The History & Physical has been completed within 30 days and I have reviewed it.: No Section B - Complete if H&P > 30 days Chief Complaint: Other intervertebral disc displacement, lumbar reg Allergies: Allergies Allergy/AdvReac Type Severity Reaction Status Date / Time No Known Allergies Allergy Verified 06/15/24 13:27 Review of Systems Sugical H&P ROS: Negative: Constitution, Cardiovascular, Respiratory, Neurological, Psychiatric, Hem-Onc, Allergic/Immunologic, Gastrointestinal, Genitourinary, Musculoskeletal, Integumentary, Endocrine and Eyes/Ears/Nose/Thr oat Exam Surgical H&P Exam: Normal: HEENT, Normal: Heart, Normal: Lungs, Normal: Extremities, Normal: Abdomen, Normal: Skin and Normal: Neurological (awake, alert,oriented x 3 ) Plan Diagnosis/Plan: Unchanged redo right L4-5 microdiskectomy Time Spent With Patient Time: Total time managing care of this patient today ___5_ minutes.
--- NOTE | 2024-07-06 07:06 | PM.DS ---
DS: Providers Provider Date of Service: 07/06/24 Date of discharge: 07/06/24 Primary care physician: Rosio Juares MD Admitting clinician: Sumit Blevins DS: Diagnosis Discharge Diagnosis (1) Lumbar disc herniation: Status: Acute DS: Summary Time Attestation Discharge Coordination Time (in mins): 5 Quality: Safe Use of Opioids Does Pt have an Active Cancer Diagnosis on the Problem List?: No Quality: Stroke Does the patient have a stroke diagnosis?: No Physical Exam Vital Signs: Vital Signs: Last Vital Signs Pulse 77 06/28/24 12:03 Resp 18 06/28/24 12:03 BP 138/81 06/28/24 12:03 Pulse Ox 99 06/28/24 12:03 O2 Del Method Room Air 06/28/24 12:03 BMI result Body Mass Index 29.1 Discharge Plan Discharge Patient Disposition: Home, Self-Care Referrals: Rosio Juares MD [Primary Care Provider] - 1 Week Discharge Medications: New oxycodone 5 mg tablet 5 mg PO Q4H PRN (Reason: pain) Qty: 20 0RF Rx Instructions: Partial Fill upon patient request. docusate sodium [Colace] 100 mg capsule 100 mg PO BID Qty: 20 0RF Continued cyclobenzaprine 10 mg tablet 10 mg PO TID PRN (Reason: muscle spasm) lorazepam 0.5 mg tablet 0.5 mg PO Q8H PRN (Reason: anxiety) lisinopril 10 mg tablet 10 mg PO QAM Discharge Orders: Discharge Order (Routine); Ordered 07/06/24 Ordered By: Jefry Davis Diet: Advance to usual diet Activity on Discharge: As tolerated Activity Restrictions/Additional Instructions: After your spinal surgery we ask you to observe the following restrictions/guidelines: Activity: It is normal to feel some discomfort as you increase your activity, but that will improve with time. We ask you avoid heavy lifting or acitivities that cause pain. As a general rule, 8lbs is a safe limit for lifting right after surgery. Walk as much as you feel comfortable but not to exhaustion. You will feel extra tired the first few days after surgery. Stay well hydrated. It is OK to walk up and down stairs You may return to driving when you are off narcotics (such as vicodin, oxycodone, dilaudid, etc), and you are back to normal functional capacity. If you have any concerns please check with office before driving. Return to work is specific to each patient and each surgery, so please speak with your doctor/PA at first follow up. Please bring paperwork such as FMLA at that time if you need it filled out. Medications: For optimum pain control, it is best to start with a combination of 500 mg of Tylenol every 4 hours with 600 mg of Motrin every 8 hours, and use narcotics as needed in between for breakthrough pain. We will give you a short supply of narcotics after surgery (usually one weeks worth). If you need more please call the office but do not use more than prescribed. You will need to give our office 48 hours notice if you need narcotics refilled and we do not fill narcotics on weekends or evenings. If you are on a narcotic, it is a good idea to take a stool softener such as colace or senna to avoid constipation If you take blood thinner such as aspirin, Plavix, Coumadin, Effient, Eliquis etc for conditions such as Afib, DVT, Pulmonary embolus, coronary disease, stents etc please speak with your surgeon about specific details as to when you can resume these medications. You can resume NSAIDs on post op day 1 (eg: Motrin, Naproxen, etc). Follow up: Please call the office, , after surgery to arrange a 3 week follow up for wound check. Wound Care: You may remove your dressing on the first day after surgery. ?You may ?leave open to air. Please do not remove the steri strips underneath. they will fall off on their own in one week. IT IS NORMAL FOR THE WOUND TO OOZE OR BE BLOODY FOR A FEW DAYS AFTER SURGERY. ?IF THIS HAPPENS JUST PLACE NEW DRESSING OVER IT TO AVOID STAINING CLOTHES. You may shower on post op day # 1 We ask that you do not let the water soak the wound. If it does get wet, just towel dry lightly. Please do not scrub your incision or place any type of chemical/ointment on the wound. No tub baths, pools or jacuzzis for one month. If you have any leaking or redness from your wound, or fevers, please call office Print Language: Palestinian
[2024-07-06] MEDS: methocarbamoL 750 MG TABLET PO (07:48)
[2024-07-06] MEDS: Gabapentin 300 MG CAPSULE PO (07:48)
[2024-07-06] MEDS: Lactated Ringers 1,000 ML 100 ML IVCONT (07:55)
--- NOTE | 2024-07-06 08:07 | ECG_ITS ---
Test Reason : question right bundle branch block Blood Pressure : */* mmHG Vent. Rate : 67 BPM Atrial Rate : 67 BPM P-R Int : 170 ms QRS Dur : 92 ms QT Int : 380 ms P-R-T Axes : 32 -31 6 degrees QTcB Int : 401 ms Normal sinus rhythm Left axis deviation Abnormal ECG No previous ECGs available Referred By: Elizabeth Shen Electronically Signed By: IKER CORONEL MD
--- NOTE | 2024-07-06 08:28 | HO.ANESPROP2 ---
Documented by User: Christina Corona NP 07/05/24 09:37 HPI - Anesthesia Eval Consult details Narrative: 49yo M for Right REDO L4-5 Microdiscectomy, 07/06/24 No recent illness No CP/SOB with walking >4 miles daily prior to back pain Colon CA with chemo 2007 Active Problems Active Problems: All Active Problems Lumbar disc herniation (Acute) Past Medical History Medical History Back pain Neuropathy Kidney stone History of chemotherapy Lumbar radiculopathy HTN (hypertension) Colon cancer Surgical History Surgical History H/O colonoscopy History of back surgery History of colon resection History of laparotomy Social History Social History Are you a primary lead care manager to a significant other at home: No Do you presently have visiting nurse or other home services: No Patient Tobacco Use Status: Never used Tobacco Use of substances other than those prescribed or required for medical reasons: No Have you been hit, kicked, punched, or otherwise hurt by someone within the past year? If so, by whom?: No Are you DNR?: No Advance Directives: No Advance Directives Information Provided: Yes Advance Directives on File: No Recently lost weight without trying: No Nutrition Risks: No Nutritional Risk Poor oral hygiene: No Meds Allergies Allergy/AdvReac Type Severity Reaction Status Date / Time No Known Allergies Allergy Verified 07/06/24 07:17 Home Medications ?Medication ?Instructions ?Recorded ?Confirmed ?Last Taken ?Type cyclobenzaprine 10 mg tablet 10 mg PO TID PRN muscle spasm 06/27/24 06/27/24 Unknown History lisinopril 10 mg tablet 10 mg PO QAM 06/27/24 06/27/24 Unknown History lorazepam 0.5 mg tablet 0.5 mg PO Q8H PRN anxiety 06/27/24 06/27/24 Unknown History Exam Height,Weight and Vital Signs: Height 5 ft 5 in Weight 79.379 kg Last Vital Signs Pulse 77 06/28/24 12:03 Resp 18 06/28/24 12:03 BP 138/81 06/28/24 12:03 Pulse Ox 99 06/28/24 12:03 O2 Del Method Room Air 06/28/24 12:03 Pertinent Lab Results Pertinent Lab Results: Lab Results 06/28/24 Range/Units 12:58 WBC 5.3 (4.8-10.8) X10*3/uL RBC 4.94 (4.60-5.80) X10*6/uL Hgb 14.6 (14.0-18.0) g/dl Hct 44.3 (42.0-52.0) % MCV 89.7 (80.0-98.0) fL MCH 29.6 (27.0-33.0) pg MCHC 33.0 (31.0-36.0) g/dl RDW 12.5 (11.0-16.0) % Plt Count 214 (160-400) X10*3/uL MPV 9.4 (9.4-12.4) fL Absolute Nucleated RBC 0.000 (0.0-0.012) X10*3/uL Nucleated RBC % (auto) 0.0 (0.0-0.2) /100WBC Sodium 138 (135-145) mmol/L Potassium 4.9 (3.3-5.1) mmol/L Chloride 107 (96-108) mmol/L Carbon Dioxide 25 (22-29) mmol/L Anion Gap 11 L (12-20) BUN 15 (9-16) mg/dL Creatinine 0.95 (0.5-1.4) mg/dL Estim Creat Clear Calc 90.3 Estimated GFR > 60 Random Glucose 103 (60-115) mg/dL Calcium 9.2 (8.4-10.2) mg/dL Airway Mallampati Class: III TM Dist: >3cm Neck ROM: Full Loose/Missing/Broken Teeth: No Heart: RRR Lungs: CTAB Assessment and Plan Assessment Anesthesia Assessment: Anesthesia Plan Discussed and PAT Visit Documented by User: Elizabeth Shen DO 07/06/24 08:29 [facility] Past Medical History Medical History Back pain Neuropathy Kidney stone History of chemotherapy Lumbar radiculopathy HTN (hypertension) Colon cancer Family History Family history of problems with anesthesia: No Surgical History Surgical History H/O colonoscopy History of back surgery History of colon resection History of laparotomy History of Problems with Anesthesia: No Social History Social History Are you a primary lead care manager to a significant other at home: No Do you presently have visiting nurse or other home services: No Patient Tobacco Use Status: Never used Tobacco Use of substances other than those prescribed or required for medical reasons: No Have you been hit, kicked, punched, or otherwise hurt by someone within the past year? If so, by whom?: No Are you DNR?: No Advance Directives: No Advance Directives Information Provided: Yes Advance Directives on File: No Recently lost weight without trying: No Nutrition Risks: No Nutritional Risk Poor oral hygiene: No Meds Allergies Allergy/AdvReac Type Severity Reaction Status Date / Time No Known Allergies Allergy Verified 07/06/24 07:17 Home Medications ?Medication ?Instructions ?Recorded ?Confirmed ?Last Taken ?Type cyclobenzaprine 10 mg tablet 10 mg PO TID PRN muscle spasm 06/27/24 06/27/24 Unknown History lisinopril 10 mg tablet 10 mg PO QAM 06/27/24 06/27/24 Unknown History lorazepam 0.5 mg tablet 0.5 mg PO Q8H PRN anxiety 06/27/24 06/27/24 Unknown History Exam Exam Date and Time: 07/06/24 0828 Height,Weight and Vital Signs: Height 5 ft 5 in Weight 79.379 kg Last Vital Signs Pulse 77 06/28/24 12:03 Resp 18 06/28/24 12:03 BP 138/81 06/28/24 12:03 Pulse Ox 99 06/28/24 12:03 O2 Del Method Room Air 06/28/24 12:03 Height 5 ft 5 in Weight 78.7 kg Vital Signs Pulse Rate 77 06/28/24 12:03 Respiratory Rate 18 06/28/24 12:03 Blood Pressure 138/81 06/28/24 12:03 Pulse Oximetry 99 06/28/24 12:03 Oxygen Delivery Method Room Air 06/28/24 12:03 Temperature 98.1 F 07/06/24 07:55 Pulse Rate 68 07/06/24 07:55 Respiratory Rate 15 07/06/24 07:55 Blood Pressure 143/86 H 07/06/24 07:55 Pulse Oximetry 99 07/06/24 07:55 Oxygen Delivery Method Room Air 07/06/24 07:55 Airway Mallampati Class: II TM Dist: >3cm Neck ROM: Full Loose/Missing/Broken Teeth: No (patient denies any loose or broken teeth) Heart: S1S2 Assessment and Plan Assessment Anesthesia Assessment: Anesthesia Plan Discussed and Chart Reviewed Final Anesthetic Review Family History of Problems with Anesthesia: No History of Problems with Anesthesia: No NPO: Yes ASA Class: II Final Preanesthetic Review: No Changes in Pt Med Stat, Meds/Allgs Chart Reviewed, Consent Obtained/Reviewed and Anes Risks/Benef Reviewed Patient Risk: Low Procedure Risk: Intermediate Anesthetic Plan Anesthetic Plan: GA and Agree w/ Assess. and Plan Disposition: Standard PACU
[2024-07-06] MEDS: Acetaminophen 1,000 MG/100 ML PIGGYBACK 400 MG IV (09:30)
--- NOTE | 2024-07-06 09:39 | W.PM.OPN ---
Operative Note Operative Note Date of Service: 07/06/24 Narrative: Preoperative diagnosis: Right L5 lumbar radiculopathy due to recurrent disc herniation Postoperative diagnosis: Same Procedure: Redo L4-5 lumbar microdiskectomy with microscope; right side Surgeon: Sumit Blevins MD, PhD Sandfill Operator: keila Perez This patient underwent a lumbar microdiskectomy 15 years ago another institution. He presents with a right L4-5 radiculopathy. MRI shows a small recurrent disc herniation compressing the L5 nerve root. The patient was offered a lumbar microdiskectomy to decompress the nerve root. The procedure complications were explained. The patient was consented. The patient was brought to the operating room and endotracheally intubated. The patient was turned in a prone position on the Luis Alfredo frame. Prepping and draping was done followed by time-out. A mid lumbar incision was made followed by release of the paravertebral muscles on the right side to expose the L4-5 interspace. An intraoperative x-rays obtained to confirm the correct level. The microscope was brought in. A L4 laminotomy was done followed by opening of the flavum ligament. The L5 nerve root was identified and retracted medially to expose the L4-5 disc space. Small fragments of disc herniations were removed from under the nerve root as well as scar tissue. This resulted in an excellent decompression of the L5 nerve root. On inspection it looked like the outer layer of the dura was violated and therefore left piece of DuraGen. Hemostasis was done. The microscope was removed. Marcaine was injected intramuscularly.The incision was closed in two layers. Steri-Strips used to approximate the incision. An op-site were taken there was used to cover the incision. All sponge and needle counts were correct. Patient was extubated and transported in stable condition to recovery room. this procedure was done with the aid of a physician certified surgical tech/first assistant who performed the initial exposure until the microscope was brought in and performed the closure of the incision. Anesthesia: General Blood loss: 10 mL Complications: None Specimen: None Surgical time: 30 minutes Disposition: Discharge home
[2024-07-06] MEDS: fentaNYL citrate/PF 100 MCG/2 ML VIAL 50 MCG IVPUSH (10:36)
[2024-07-06] MEDS: oxyCODONE HCl Immed Release 5 MG TABLET PO (10:39)
== END 2024-07-06 11:29 | disposition home or self-care (01) ==
PROVIDERS: Nurse Practitioner; PCP Internal Medicine; Visit Provider Neurological Surgery
PROC: (CPT 63042; principal; 2024-07-06 09:00)
DX: M51.26 Other intervertebral disc displacement, lumbar region (principal); M51.16 Intervertebral disc disorders with radiculopathy, lumbar region; R26.2 Difficulty in walking, not elsewhere classified; I10 Essential (primary) hypertension; Z79.899 Other long term (current) drug therapy; Z85.038 Personal history of other malignant neoplasm of large intestine; Z90.49 Acquired absence of other specified parts of digestive tract; Z98.890 Other specified postprocedural states
CPT/HCPCS: 63042; 36415; 80048; 85027; 93005; C1763; J0131; J0690; J1100; J1171; J1885; J2003; J2250; J2405; J2704; J3010

== ENCOUNTER → 2024-07-06 06:52 | Outpatient (BNV) | payer BC, SELFPAY | PROVIDERS: PCP Internal Medicine; Visit Provider Neurological Surgery | DX: M51.26 Other intervertebral disc displacement, lumbar region (principal) | CPT/HCPCS: 63042; 99499 ==

== ENCOUNTER → 2024-07-06 08:07 | Outpatient (BNV) | payer BC, SELFPAY | PROVIDERS: PCP Internal Medicine; Visit Provider Internal Medicine Cardiovascular Disease | DX: R94.31 Abnormal electrocardiogram [ECG] [EKG] (principal) | CPT/HCPCS: 93010 ==

== ENCOUNTER 2024-07-27 09:04 | Outpatient (AMB) | payer BC, SELFPAY ==
--- NOTE | 2024-07-27 09:04 | HO.SPINEOV ---
Intake Visit Reasons: 1st post op Intake Note: Mr. Butler is here today for his 1st post op appointment. Probate Lawyer Required: No Allergies No Known Allergies Allergy (Verified 07/27/24 09:06) Assessment & Plan Assessment & Plan (1) Lumbar disc herniation: Code(s): M51.26 - Other intervertebral disc displacement, lumbar region Category: Medical Plan Procedure: Redo L4-5 lumbar microdiskectomy Red comes in today for his 1st postoperative visit after Dr. Blevins completed a right L4-5 microdiscectomy a few weeks ago. To recap he was seen in clinic for a right sided radiculopathy. He has a previous history of a right L4-[address] Rahman 15 years ago. Overall he has been doing very well from surgery and is very satisfied with this procedure. He states that his right leg pain has essentially resolved. He asked several questions regarding return to work in the postoperative healing course all of which I answered to the best of my ability. He is going to be due to go back to work in about 6 weeks out from surgery, and we discussed the risks/benefits of doing so. He would like to follow up around August 18 for a subsequent postoperative visit to obtain clearance to return to work. He works for [employer] lay in his concerned that he will lose his current position of he does not go back in 6 weeks from surgery. No new neurological deficits. The patient ambulates well and rises from a seated position without difficulty. His posterior incision site is clean, dry, well healing. I would like Gary to follow up with us again as described above. Josh Blevins MD,PhD [facility] Coding Level of Care Code Global (55673) Diagnoses Lumbar disc herniation M51.26
--- OUTSIDE RECORDS SUMMARY | 2024-07-27 10:00 | XMS_ITS | Continuity of Care Document ---
Author Organization [facility] Address [address] [place], [place] [address]ing[address] adama, [address] [place] [address]- Care Team Providers Care Gas Jockey Name Role Phone Rosio Juares MD Primary Care Physician Encounter [facility] Date[place]s): 05/23/24 - 07/07/[address] [place], [place] [address] Attending Physician: Quyen Caballero DO Encounter Type: Pre Office Visit Allergies, Adverse Reactions, Alerts No Known Allergies [...] Team Personnel Name: Rosio Juares MD Position: [facility] Physician - Pediatrics Member Role: PCP Address: [address] [place] [address] Telecom: Care Team Related Persons Name: JULIO CÉSAR ROLON Insurance Providers Guarantor name: CASH ROLON Health Plan Information #: 1 Payer: OUT OF STATE PLANS Member Number: [id number] Policy Number: NA Group Number: [id number] Health Plan Information #: 2 Payer: BL[employer] ELECT Member Number: [id number] Policy Number: NA Group Number: [id number]
--- OUTSIDE RECORDS SUMMARY | 2024-07-27 10:00 | XMS_ITS | Continuity of Care Document ---
Author Organization [facility] Address [address] [place] [address] [address] gal[address], [address] [place] [address]- Care Team Providers Care Order Analyst Name Role Phone Rosio Juares MD Primary Care Physician Encounter [facility] Date(s): 06/07/24 - 07/07/[address] [place], [place] [address] Attending Physician: Sada Ojeda Admitting Physician: Sada Ojeda Referring Physician: Sada Ojeda Encounter Type: Triage Allergies, Adverse Reactions, Alerts [...] Team Personnel Name: Rosio Juares MD Position: [facility] Physician - Pediatrics Member Role: PCP Address: [address] [place] [address] Telecom: Care Team Related Persons Name: JULIO CÉSAR ROLON Insurance Providers Guarantor name: CASH ROLON Health Plan Information #: 1 Payer: BC OUT OF STATE PLANS Member Number: NA Policy Number: NA Group Number: NA Health Plan Information #: 2 Payer: BLUE CARE ELECT Member Number: NA Policy Number: NA Group Number: NA
--- OUTSIDE RECORDS SUMMARY | 2024-07-27 10:00 | XMS_ITS | Encounter Summary ---
Author Organization [employer] Address [address] [place] [address] [address] [place] [address] Care Team Providers Care Motor Block Mechanic Name Role Phone Rosio Juares MD Primary Care Provider [phone] Reason for Visit * Reason Onset Date Comments PML paperwork 06/28/2024 Encounter Details Date Type Department Care Team (Late st Contact Info) Description 06/28/[address] [facility] MED[facility] [address] [place] [address] Rosio Juares MD [address] [place] [address] PML paperwork Social History Tobacco Use Types [...] Paid medical leave received via fax from [facility] to be filled out. Placed in the providers bin documented in this encounter Plan of Treatment Not on file documented as of this encounter Visit Diagnoses Not on filedocumented in this encounter Care Teams Motor Block Mechanic Relationship Specialty Start Date End Date Rosio Juares MD [address] [place] [address] PCP - General Internal Medicine 04/23/22 documented as of this encounter
--- OUTSIDE RECORDS SUMMARY | 2024-07-27 10:01 | XMS_ITS | Clinical Summary ---
Author Organization [employer] Address [address] [place] [address] [address] [place] [address] Care Team Providers Care Rv Repair Technician Name Role Phone Rosio Juares MD Primary Care Provider [phone] Allergies Active Allergy Reactions Criticality Noted Date Comments Duloxetine Hcl 06/24/2022 Other reaction(s): Unknown Medications * This document contains information received from the source organization and may not represent a complete record from that organization. lisinopril 20 MG tabletIndications :Essential hypertension Take 1 tablet (20 mg) by mouth in the morning. 90 tablet 3 4 11/18/19 25 Active pregabalin (Lyrica) 50 MG capsuleIndication s:Lumbar radiculopathy, acute Take 1 capsule (50 mg) by mouth 3 times daily. 90 capsule 2 4 09/24/19 25 Active cyclobenzaprine (Flexeril) 10 MG tabletIndications :Lumbar radiculopathy, acute TAKE 1 TABLET (10 MG) BY MOUTH NEEDED IN THE MORNING , AT NOON, AND AT BEDTIME FOR MUSCLE SPASMS 45 tablet 5 Active LORazepam (Ativan) 0.5 MG tabletIndications :Generalized anxiety disorder with panic attacks Take 1 tablet (0.5 mg) by mouth every 8 (eight) hours if needed for anxiety. 90 tablet 1 5 Active Active Problems Problem Noted Date Diagnosed Date [...] Date Type Department Care Team Description 06/28/[address] [address] Rosio Juares MD PML paperwork 06/25/[address] [address] Rosio Juares MD Generalized anxiety disorder with panic attacks 06/24/[address] [address] Rosio Juares MD Lumbar radiculopathy, acute 06/01/[address] [address] Rosio Juares MD Additional [facility] PT paperwork 05/31/[address] [address] Rosio Juares MD Lumbar radiculopathy, acute 05/23/[address] [address] Rosio Juares MD [facility] paperwork (Fax received from [facility] paperwork) 05/23/[address] [address] Rosio Juares MD [employer] paperwork (Fax received from [facility] PFMLA) 05/03/[address] [address] Rosio Juares MD DISABILITY PPW FROM [facility] (FAX RECEIVED FROM PATIENTS WORK RE: DISABILITY PPW) 05/01/2024 11:20 AM EST [address] [address] Rosio Juares MD Work related injury (Primary Dx); Lumbar radiculopathy, acute from Last 3 Months [...] 08/15/2023 08/14/2013, 08/14/2013 COVID-19 Vaccine ( - season) 2024 06/24/2021, 08/02/2020, 07/14/2020 Influenza Vaccine [...] [facility] 01/09/2021 3:35 PM EDT Rosio Juares MD LAB BLOOD ORDERABLES Final Resul t [facility] [address] * COLONOSCOPY: [facility] (02/01/2020 12:00 AM EDT) Anatomical Region Laterality Modality Endoscopy 02/01/2020 Narrative 02/01/2020 12:00 AM EDT Refer to Fovea for result details [facility] Procedure: COLONOSCOPY: [facility] Procedure Note Provider, MD Miguelina - 09/17/2022 Refer to Fovea for result details [facility] Procedure: COLONOSCOPY: [facility] Miguelina Mcginnis MD ENDOSCOPY PROCEDURE ORDER ALBIN Final Result from Last 3 Months or Most Recently Relevant to Health Maintenance Insurance BCBS PPO [employer] Care Teams Rv Repair Technician Relationship Specialty Start Date End Date Rosio Juares MD [address] [place] [address] PCP - General Internal Medicine 04/23/22
--- OUTSIDE RECORDS SUMMARY | 2024-07-27 10:01 | XMS_ITS | Encounter Summary ---
Author Organization [employer] Address [address] [place] [address] Care Team Providers Care Csr Name Role Phone Rosio Juares MD Primary Care Provider [phone] Reason for Referral * Consultation (Routine) - Closed Specialty Diagnoses / Procedures Referred By Godwin arora Referred To Contact Diagnoses Lumbar radiculopathy, chronic Asha Vallejo CNP [address] [place] [address] Phone: tel: fax: Ric [address] [place] [address] Phone: tel: fax: Referral ID Status Reason Start Date Expiration Date V isits Requested Visits Authorized [id number] Closed Specialty Services Required 03/15/2024 03/15/2025 1 1 Reason for Visit * Reason Onset Date Comments MRI results 03/10/2024 Care Coordination 03/10/2024 Encounter Details Date Type Department Care Team (Late st Contact Info) Description 03/10/2024 Telephone [place] [facility] [address] [place] [address] Rosio Juares MD [address] [place] [address] MRI results; Care Coordination Social History Tobacco [...] Comp. They suggested either Dr. Chapa at [place] or Dr Buddy Larios at [facility]. Patient prefers Dr. Larios. Please enter [...] call to nursing. MRI was done at [facility] on 03/01 Patient was made aware we [...] Primary documented in this encounter Care Teams Csr Relationship Specialty Start Date End Date Rosio Juares MD [address] [place] [id number] PCP - General Internal Medicine 04/23/22 documented as of this encounter
--- OUTSIDE RECORDS SUMMARY | 2024-07-27 10:01 | XMS_ITS | Clinical Summary ---
[facility] [address] [place] [address] Care Team Providers Care Sweater Designer Name Role Phone Unavailable Primary Care Provider [...] 08/15/2023 08/14/2013, 08/14/2013 COVID-19 Vaccine (1 - 2023- season) 2024 Influenza Vaccine (#1) 2024 , 05/04/2019, 04/21/2018, Additional history exists Pneumococcal Vaccine: 50+ Years (1 of 1 - PCV) 2024 Zoster Vaccines (1 of 2) 2024 Hypertension/CHF/CAD [...] patient's age to complete this topic Meningococcal B Vacine Aged Out No lo nger eligible based on patient's age to complete [...]
== END 2024-07-27 09:28 | disposition home or self-care (01) ==
PROVIDERS: PCP Internal Medicine; Visit Provider Physician Assistant
DX: M51.26 Other intervertebral disc displacement, lumbar region (principal)
CPT/HCPCS: 99024

== ENCOUNTER → 2024-07-27 09:04 | Outpatient (BNVA) | payer BC, SELFPAY | PROVIDERS: PCP Internal Medicine; Visit Provider Physician Assistant ==

== ENCOUNTER 2024-08-18 11:32 | Outpatient (AMB) | payer BC, SELFPAY ==
--- NOTE | 2024-08-18 11:39 | HO.SPINEOV ---
Intake Visit Reasons: 2nd post op Intake Note: Mr. Butler is here today for his 2nd post op. Occupational Therapy Department Chair Required: No Allergies No Known Allergies Allergy (Verified 08/18/24 11:41) Assessment & Plan Assessment & Plan (1) Lumbar disc herniation: Code(s): M51.26 - Other intervertebral disc displacement, lumbar region Category: Medical Plan Mr Butler is here in follow-up. He had microdiskectomy done 6 weeks ago. He is completely pain-free in his been walking multiple miles a day doing great. He is interested in returning to work. He does have to do some bending at work but no lifting. I told him this is completely reasonable and gave him a work note to return without restrictions. He can come back and see us down the road if something changes. Jefry Bleivns MD, PhD [facility] Coding Level of Care Code Global (64185) Diagnoses Lumbar disc herniation M51.26
== END 2024-08-18 11:57 | disposition home or self-care (01) ==
LOC: HO.HNS 11:33
PROVIDERS: PCP Internal Medicine; Visit Provider Physician Assistant
DX: M51.26 Other intervertebral disc displacement, lumbar region (principal)
CPT/HCPCS: 99024